=== PATIENT | female | born 1985 | race African-American/Black ===

== ENCOUNTER 2018-05-28 14:13 | Emergency (ER) | payer MEDICAID, OTHER ==
[~2018-05-28] VITALS: Ht 152.4 cm; Wt 45.4 kg
[2018-05-28] MEDS ORDERED: Methocarbamol 500mg tab ORAL ONE (15:00)
[2018-05-28] MEDS ORDERED: ROBAXIN500 MG PO (15:16)
[2018-05-28] MEDS ORDERED: TYLENOL EXTRA500 MG ORAL (15:16)
[2018-05-28] MEDS ORDERED: LIDOCAINE700 M1 TP (15:16)
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
[2018-05-28 15:28] VITALS: BP 119/75
[2018-05-28 15:30] VITALS: BP 119/75
== END 2018-05-28 15:32 | disposition home or self-care (01) ==
LOC: EMR 15:16
DX: M54.9 Dorsalgia, unspecified (principal); R07.82 Intercostal pain; V43.62XA Car passenger injured in collision with other type car in traffic accident, initial encounter; Y92.488 Other paved roadways as the place of occurrence of the external cause; M54.2 Cervicalgia
CPT/HCPCS: 99283

== ENCOUNTER 2018-08-23 14:01 | Emergency (ER) | payer MEDICAID ==
[~2018-08-23] VITALS: Ht 154.9 cm; Wt 43.1 kg
[~2018-08-23 14:01] MED LIST: LIDOCAINE700 M1 TP; ROBAXIN500 MG PO; TYLENOL EXTRA500 MG ORAL
[2018-08-23] MEDS ORDERED: NKM (14:52)
[2018-08-23 15:03] VITALS: BP 120/84
--- NOTE | 2018-08-23 15:26 | Emergency Room Report ---
History of Present Illness General Chief Complaint: Eye Problems Source: Patient Present Illness HPI 33-year-old female presents to the emergency department complaining of 6 out of 10 in severity burning, swelling and foreign sensation to the left upper eyelid 3 days. Patient reports her symptoms have been progressive and she has noticed the swelling is been progressive as well as. Patient reports that she has noticed a bit more increased lacrimation and states that normally she has a very dry eye and lately has been very itchy and then her symptoms began. Denies SB sensation, Discharge, Redness, Loss of vision, Floaters, Flashing lights or Diplopia/blurry vision. Allergies: Coded Allergies: No Known Allergies (Unverified , 05/28/18) Patient History Past Medical History: see triage record Past Surgical History: none Pertinent Family History: none Last Menstrual Period: 07/2018 Now: No Reviewed Nursing Documentation: PMH: Agreed; PSxH: Agreed Nursing Documentation-PMH Past Medical History: No Stated History Review of Systems All Other Systems: negative except mentioned in HPI Physical Exam Vital Signs Date Time Temp Pulse Resp B/P (MAP) Pulse Ox O2 Delivery O2 Flow Rate FiO2 08/23/18 14:48 99.1 89 14 116/74 99 Room Air Sp02 EP Interpretation: reviewed, normal General Appearance: no apparent distress, alert, GCS 15, non-toxic Head: normocephalic, atraumatic Eyes: bilateral eye normal inspection, bilateral eye PERRL, bilateral eye other - hordeolum externum of the Left eyelid.- no obvious FB on lid flip. no erythema, crusting or d/c. ENT: hearing grossly normal, normal voice Neck: full range of motion Respiratory: lungs clear, speaking full sentences Cardiovascular #1: regular rate, rhythm Musculoskeletal: back normal, gait/station normal, normal range of motion, non- tender Neurologic: alert, oriented x3, responsive, motor strength/tone normal, sensory intact, speech normal, grossly normal Psychiatric: judgement/insight normal Skin: normal color, no rash, warm/dry, well hydrated Lymphatic: no adenopathy Medical Decision Making PA Attestation Dr. Ibarra is my supervising physician whom pt. management has been discussed with. Diagnostic Impression: Primary Impression: Hordeolum externum Qualified Codes: H00.014 - Hordeolum externum left upper eyelid Additional Impression: Chronic dryness of left eye ER Course 33-year-old female presents to the emergency department complaining of 6 out of 10 in severity burning, swelling and foreign sensation to the left upper eyelid 3 days. Patient reports her symptoms have been progressive and she has noticed the swelling is been progressive as well as. Patient reports that she has noticed a bit more increased lacrimation and states that normally she has a very dry eye and lately has been very itchy and then her symptoms began. Denies SB sensation, Discharge, Redness, Loss of vision, Floaters, Flashing lights or Diplopia/blurry vision. Ddx considered but are not limited to: FB, Corneal Ulcer, conjunctivitis. Iridis, hordeolum, chalazion. Vital signs: are WNL, pt. is afebrile H&PE are most consistent with: hordeolum externum of the Left eyelid.- no obvious FB on lid flip. no erythema, crusting or d/c. -VA: left 20/20, Right 20/13 ORDERS: None required at this time ED INTERVENTIONS: none at this time. DISCHARGE: At this time pt. is stable for d/c to home. Will provide printed patient care instructions, and any necessary prescriptions. Care plan and follow up instructions have been discussed with the patient prior to discharge. Last Vital Signs Date Time Temp Pulse Resp B/P (MAP) Pulse Ox O2 Delivery O2 Flow Rate FiO2 08/23/18 15:03 99.1 88 16 120/84 100 Room Air Disposition: HOME, SELF-CARE Condition: Stable Scripts Carboxymethylcellulose Sodium (THERA TEARS) 15 Ml Drops 1-2 DROP OP PRN PRN for Per rx protocol, #15 ML 2 Refills Prov: Christa Guerra 08/23/18 Erythromycin Base (ERYTHROMYCIN*) 3.5 Gm Oint...g. 1 APPLIC RIGHT EYE BID, #3.5 GM 1 Refill Prov: Christa Guerra 08/23/18 Patient Instructions: Artificial Tears eye ointment, Erythromycin eye ointment , Stye Additional Instructions: Take medications as directed. Follow up with a Ocular Care Technician in 3-5 days, even if your symptoms have resolved. --Please review list of primary care clinics, if you do not already have a primary care provider Return sooner to ED if new symptoms occur, or current symptoms become worse. - Please note that this Emergency Department Report was dictated using [employer]ent waver technology software, occasionally this can lead to erroneous entry secondary to interpretation by the dictation equipment. Christa Guerra Aug 23, 2018 15:26
[2018-08-23] MEDS ORDERED: ERYTHROMYCIN3.5 GM RIGHT EYE (15:30)
[2018-08-23] MEDS ORDERED: THERA TEARS15 ML OP ×2 (15:30→15:41)
[2018-08-23 15:46] VITALS: BP 120/84
== END 2018-08-23 15:46 | disposition home or self-care (01) ==
LOC: EMR 15:46
DX: H00.014 Hordeolum externum left upper eyelid (principal)
CPT/HCPCS: 99282

== ENCOUNTER 2019-04-12 03:53 | Emergency (ER) | payer MEDICAID ==
[~2019-04-12] VITALS: Ht 152.4 cm; Wt 45.4 kg
[~2019-04-12 03:53] MED LIST changes: +ERYTHROMYCIN3.5 GM RIGHT EYE; +NKM; +THERA TEARS15 ML OP
[2019-04-12 04:07] VITALS: BP 110/66
[2019-04-12] MEDS ORDERED: BACTRIM DS TAB1 EAC1 ORAL (04:33)
[2019-04-12] MEDS ORDERED: IBUPROFEN600 MG ORAL (04:33)
[2019-04-12] MEDS ORDERED: HYDROCODON-ACE1 EA15 ORAL (04:33)
--- NOTE | 2019-04-12 04:33 | Emergency Room Report ---
History of Present Illness General Chief Complaint: Skin Rash/Abscess Source: Patient Present Illness [facility] This is a 33-year-old with a history of hidradenitis. She presents with pain and swelling to the right axilla area. Onset for last 2 days. No drainage. Pain is 10 out of 10. Worse with movement. Worse with palpation. Similar symptom in the past. No fever chills. Allergies: Coded Allergies: No Known Allergies (Unverified , 05/28/18) Patient History Past Medical History: see triage record, old chart reviewed Past Surgical History: none Pertinent Family History: none Social History: Denies: smoking Last Menstrual Period: 03/11 Now: No Immunizations: other Reviewed Nursing Documentation: PMH: Agreed; PSxH: Agreed Nursing Documentation-PMH Past Medical History: No Stated History Review of Systems Eye: Denies: eye pain, blurred vision ENT: Denies: ear pain, nose congestion, throat swelling Respiratory: Denies: cough, shortness of breath Cardiovascular: Denies: chest pain, palpitations Gastrointestinal: Denies: abdominal pain, diarrhea, nausea, vomiting Musculoskeletal: Denies: back pain, joint pain Skin: Denies: rash Neurological: Denies: headache, numbness Endocrine: Denies: increased thirst, increased urine Hematologic/Lymphatic: Denies: easy bruising All Other Systems: negative except mentioned in HPI Physical Exam Vital Signs Date Time Temp Pulse Resp B/P (MAP) Pulse Ox O2 Delivery O2 Flow Rate FiO2 04/12/19 03:55 98.8 111 18 110/66 (81) 98 Room Air Vitals with tachycardia Sp02 EP Interpretation: reviewed, normal General Appearance: well appearing, no apparent distress, alert Head: normocephalic, atraumatic Eyes: bilateral eye PERRL, bilateral eye EOMI ENT: hearing grossly normal, normal pharynx Neck: full range of motion, supple, no meningismus Respiratory: chest non-tender, lungs clear, normal breath sounds Cardiovascular #1: regular rate, rhythm, no murmur Gastrointestinal: normal bowel sounds, non tender, no mass, no organomegaly, no bruit, non-distended Musculoskeletal: back normal, gait/station normal, normal range of motion, other - Right axilla: 2 centimeter fluctuant mass. Neurologic: alert, oriented x3 Psychiatric: mood/affect normal Procedures Incision and Drainage Incision and Drainage : Consent: Verbal Site: rt axilla Blade Size: 11 I & D Procedure: betadine prep, sterile drapes applied Wound Location: upper extremity Anesthesia: 1% Lidocaine Volume Anesthetic (ccs): 2 Patient Tolerated: Well Complications: None Progress Cleaned with Betadine and then chlorhexidine. Local anesthetic of 1% lidocaine without epinephrine. I made a 1 cm incision. There is only scant amount of pus. There is no loculated area. Wound explored. Patient tolerated procedure without any problem. Medical Decision Making Diagnostic Impression: Primary Impression: Abscess ER Course Patient presents with hidradenitis/axilla abscess. Most likely MRSA. Will discharge home with antibiotics. Last Vital Signs Date Time Temp Pulse Resp B/P (MAP) Pulse Ox O2 Delivery O2 Flow Rate FiO2 04/12/19 04:07 98.8 72 18 110/66 98 Room Air Status: improved Disposition: HOME, SELF-CARE Condition: Stable Scripts Ibuprofen* (MOTRIN*) 600 Mg Tablet 600 MG ORAL THREE TIMES A DAY, #30 TAB 0 Refills Prov: Rod Bruner MD 04/12/19 Hydrocodone/Acetaminophen 5-325* (HYDROCODONE/ACETAMINOPHEN 5-325*) 1 Each Tablet 1 TAB ORAL Q6H PRN for For Pain, #10 TAB 0 Refills Prov: Rod Bruner MD 04/12/19 Trimethoprim/Sulfamethoxazole 160/800* (BACTRIM DS TABLET*) 1 Each Tablet 1 TAB ORAL Q12H, #14 TAB 0 Refills Prov: Rod Bruner MD 04/12/19 Referrals: [facility] (PCP) Patient Instructions: Abscess Additional Instructions: Follow up with your doctor in 2 3 days for recheck. Return if worse. Rod Bruner MD Apr 12, 2019 04:33
[2019-04-12] MEDS: Bactrim-DS 1 tab ORAL ONE (04:34)
[2019-04-12] MEDS: HYDROmorphone 1mg/ml Carpuject IM ONE (04:36)
[2019-04-12 05:00] VITALS: BP 110/66
== END 2019-04-12 05:00 | disposition home or self-care (01) ==
LOC: EMR 04:26
DX: L02.411 Cutaneous abscess of right axilla (principal)
CPT/HCPCS: 10060; 96372; 99283; J1170